=== PATIENT | male | born 1980 | race African-American/Black ===

== ENCOUNTER 2021-03-27 19:17 | Emergency (ER) | payer OTHER ==
[~2021-03-27] VITALS: Ht 177.8 cm; Wt 68.0 kg
[2021-03-27 19:21] VITALS: BP 125/71
== END 2021-03-27 20:29 | disposition home or self-care (01) ==
LOC: ER 19:17
DX: S61.412A Laceration without foreign body of left hand, initial encounter (principal); W26.0XXA Contact with knife, initial encounter; Y93.89 Activity, other specified; Y92.89 Other specified places as the place of occurrence of the external cause; Y99.8 Other external cause status